=== PATIENT | male | born 1965 | race African-American/Black ===

== ENCOUNTER 2018-11-10 10:49 | Inpatient (IN) | payer OTHER ==
[2018-11-10 10:51] VITALS: BMI 27.8
--- NOTE | 2018-11-10 12:00 | HP ---
CIWA Score Nausea/Vomitin Muscle Tremors: 2 Anxiety: 2 Agitation: 2 Paroxysmal Sweats: 1-Minimal Palms Moist Orientation: 0-Oriented Tacttile Disturbances: 1-Very Mild Itch/Numbness Auditory Disturbances: 1-Very Mild Visual Disturbances: 0-None Headache: 2-Mild CIWA-Ar Total Score: 13 - Admission Criteria OASAS Guidelines: Admission for Medically Managed Detox: Requires at least one of the followin. CIWA greater than 12 2. Seizures within the past 24 hours 3. Delirium tremens within the past 24 hours 4. Hallucinations within the past 24 hours 5. Acute intervention needed for co occurring medical disorder 6. Acute intervention needed for co occurring psychiatric disorder 7. Severe withdrawal that cannot be handled at a lower level of care (continued vomiting, continued diarrhea, abnormal vital signs) requiring intravenous medication and/or fluids 8. Patient presents the following: CIWA greater than 12 Admission Criteria Met: Admission criteria met Admission ROS S - [facility] Chief Complaint: i Allergies/Adverse Reactions: Allergies Allergy/AdvReac Type Severity Reaction Status Date / Time No Known Allergies Allergy Verified 11/10/18 10:59 History of Present Illness: this 53 years old male with alcohol and cocaine dependence,seeking detox, withdrawal symptom,last treatment rehab [facility] 03/10/13 to 04/07/13 fx of left foot in 2014 wearing support,ambulate with cane nicotine dependence depression longest period of sobriety 4 years Exam Limitations: No Limitations - Ebola screening Have you traveled outside of the country in the last 21 days: No Have you had contact with anyone from an Ebola affected area: No Have you been sick,other than usual withdrawal symptoms: No Do you have a fever: No - Review of Systems Constitutional: Loss of Appetite, Malaise, Night Sweats, Changes in sleep, Weakness EENT: reports: Tearing, Nose Congestion Respiratory: reports: No Symptoms reported Cardiac: reports: No Symptoms Reported GI: reports: Nausea, Poor Appetite, Abdominal cramping : reports: No Symptoms Reported Musculoskeletal: reports: Back Pain, Muscle Pain, Other (pain in left foot previous fx) Integumentary: reports: Dryness Endocrine: reports: No Symptoms Reported, Unexplained Weight Loss Psychiatric: reports: No Sypmtoms Reported, Judgement Intact, Mood/Affect Appropiate, Orientated x3, Depressed Other Systems: Reviewed and Negative Patient History - Patient Medical History Hx Anemia: No Hx Asthma: Yes (on albuterol inhaler) Hx Chronic Obstructive Pulmonary Disease (COPD): No Hx Cancer: No Hx Cardiac Disorders: No Hx Congestive Heart Failure: No Hx Hypertension: No Hx Hypercholesterolemia: No Hx Pacemaker: No HX Cerebrovascular Accident: No Hx Seizures: No Hx Dementia: No Hx Diabetes: No Hx Gastrointestinal Disorders: No Hx Liver Disease: No Hx Genitourinary Disorders: No Hx Sexually Transmitted Disorders: No Hx Renal Disease (ESRD): No Hx Thyroid Disease: No Hx Human Immunodeficiency Virus (HIV): No (last 2016 negative) Hx Hepatitis C: No Hx Depression: Yes (no med) Hx Suicide Attempt: No Hx Bipolar Disorder: No Hx Schizophrenia: No Other Medical History: no suicial,no homicidal - Patient Surgical History Past Surgical History: No Hx Neurologic Surgery: No Hx Cataract Extraction: No Hx Cardiac Surgery: No Hx Lung Surgery: No Hx Breast Surgery: No Hx Breast Biopsy: No Hx Abdominal Surgery: No Hx Appendectomy: No Hx Cholecystectomy: No Hx Genitourinary Surgery: No Hx Section: No Hx Orthopedic Surgery: No Anesthesia Reaction: No - PPD History Previous Implant?: Yes Documented Results: Negative w/o proof Implanted On Prior [facility] Admission?: Yes Date: 03/25/13 PPD to be Administered?: Yes - Smoking Cessation Smoking history: Current every day smoker Have you smoked in the past 12 months: No Aproximately how many cigarettes per day: 30 Cigars Per Day: 0 Hx Chewing Tobacco Use: No Initiated information on smoking cessation: Yes 'Breaking Loose' booklet given: 11/10/18 - Substance & Tx. History Hx Alcohol Use: Yes Hx Substance Use: Yes Substance Use Type: Alcohol, Cocaine Hx Substance Use Treatment: Yes ([facility] 05/10/13 to 04/07/13 rehab) - Substances Abused Alcohol Route: Oral Frequency: Daily Amount used: 1 GALLON OF VODKA Age of first use: 14 Date of Last Use: 11/09/18 Crack Route: Smoking Frequency: 3-6 times per week Amount used: 2-3 GRAMS Age of first use: 27 Date of Last Use: 11/09/18 Heroin Route: Inhalation Frequency: 1-3 times last 30 days Amount used: 1 BAG Age of first use: 25 Date of Last Use: 11/09/18 Family Disease History - Family Disease History Family Disease History: Other: Father (alcohol,sober), Mother (alcohol,sober) Admission Physical Exam [facility] - Vital Signs Vital Signs: Vital Signs - 24 hr 11/10/18 10:50 Temperature 98.6 F Pulse Rate 70 Respiratory 20 Rate Blood Pressure 147/95 - Physical General Appearance: Yes: Moderate Distress, Tremorous, Irritable, Sweating, Anxious HEENTM: Yes: Normal ENT Inspection, KENZIE, Pharynx Normal Respiratory: Yes: Lungs Clear, Normal Breath Sounds, No Respiratory Distress Neck: Yes: Within Normal Limits, Supple, Trachea in good position Breast: Yes: Within Normal Limits Cardiology: Yes: Within Normal Limits, Regular Rhythm, Regular Rate, S1, S2 Abdominal: Yes: Within Normal Limits, Normal Bowel Sounds, Non Tender, Flat, Soft Genitourinary: Yes: Within Normal Limits Back: Yes: Muscle Spasm Musculoskeletal: Yes: Back pain, Muscle Pain Extremities: Yes: Tremors, Other (pain in left foot history of fx) Neurological: Yes: accounting file clerk II-XII NML intact, Fully Oriented, Alert, Motor Strength 5/5 Integumentary: Yes: Dry Lymphatic: Yes: Within Normal Limits - Diagnostic (1) Alcohol dependence with uncomplicated withdrawal Current Visit: Yes Status: Acute (2) Cocaine dependence Current Visit: No Status: Active (3) Methadone maintenance therapy patient Current Visit: Yes Status: Acute (4) History of fracture of foot Current Visit: Yes Status: Acute (5) Use of cane as ambulatory aid Current Visit: Yes Status: Acute (6) Depression Current Visit: Yes Status: Acute (7) Asthma Current Visit: Yes Status: Acute Cleared for Admission [facility] - Detox or Rehab [facility] Level of Care: Medically Managed Detox Regimen/Protocol: Librium [facility] Breath Alcohol Content Breath Alcohol Content: 0 Urine Drug Screen - Results Drug Screen Negative: No Urine Drug Screen Results: THC-Marijuana, MANFRED-Cocaine, OPI-Opiates, MTD- Methadone
[2018-11-10] MEDS ORDERED: MAG HYDROX/AL HYDROX/SIMETH 30 ML UNIT-DOSE CUP PO PRN (12:23)
[2018-11-10] MEDS ORDERED: MENTHOL/PHENOL 1 EACH UD MM PRN (12:23)
[2018-11-10] MEDS ORDERED: IBUPROFEN 400 MG TABLET (FP) PO PRN (12:23)
[2018-11-10] MEDS ORDERED: hydrOXYzine PAMOATE 50 MG CAPSULE (FP) PO PRN (12:23)
[2018-11-10] MEDS ORDERED: ACETAMINOPHEN 325 MG TABLET (FP) PO PRN (12:23)
[2018-11-10] MEDS ORDERED: MAGNESIUM CITRATE 300 ML BOTTLE PO PRN (12:23)
[2018-11-10] MEDS ORDERED: NICOTINE POLACRILEX 2 MG GUM BUC PRN (12:23)
[2018-11-10] MEDS ORDERED: LOPERAMIDE HCL 2 MG CAPSULE PO PRN (12:23)
[2018-11-10] MEDS ORDERED: chlordiazePOXIDE HCL 25 MG CAPSULE PO PRN (12:23)
[2018-11-10] MEDS ORDERED: MAGNESIUM HYDROX 2400MG/30ML ORAL SUSPENSION 30 ML CUP PO PRN (12:23)
[2018-11-10] MEDS ORDERED: P-EPHED 60MG/TRIPROLIDI 2.5MG TABLET PO PRN (12:23)
[2018-11-10] MEDS ORDERED: guaiFENesin/D-METHORPHAN HB 10 ML UNIT-DOSE CUPS PO PRN (12:23)
[2018-11-10] MEDS ORDERED: ALBUTEROL SO4 8 GM HFA INHALER IH PRN (12:26)
[2018-11-10] MEDS: NICOTINE 21 MG/24 HOURS TOPICAL PATCH TD SCH (14:13)
[2018-11-10] MEDS: chlordiazePOXIDE HCL 25 MG CAPSULE PO SCH ×2 (17:43→22:16)
[2018-11-10] MEDS: MELATONIN 5 MG TABLETS PO PRN (22:16)
[2018-11-10] MEDS: THIAMINE HCL 100 MG TABLET (FP) PO SCH (22:16)
[2018-11-11] MEDS: chlordiazePOXIDE HCL 25 MG CAPSULE PO SCH ×4 (05:41→22:05)
[2018-11-11] MEDS ORDERED: METHADONE HCL 40 MG DISPERSABLE TABLET ONE (05:41)
[2018-11-11] MEDS: METHADONE 120 MG, METHADONE 10 MG PO SCH (05:42)
[2018-11-11] MEDS ORDERED: METHADONE HCL 10 MG TABLET ONE (05:42)
[2018-11-11] MEDS ORDERED: METHADONE HCL 10 MG TABLET PO SCH (06:00)
--- NOTE | 2018-11-11 10:07 | EKG ---
Test Reason : Blood Pressure : / mmHG Vent. Rate : 063 BPM Atrial Rate : 063 BPM P-R Int : 134 ms QRS Dur : 092 ms QT Int : 410 ms P-R-T Axes : 033 010 024 degrees QTc Int : 419 ms NORMAL SINUS RHYTHM MINIMAL VOLTAGE CRITERIA FOR LVH, MAY BE NORMAL VARIANT NONSPECIFIC T WAVE ABNORMALITY ABNORMAL ECG NO PREVIOUS ECGS AVAILABLE Confirmed by Nnamdi Camarillo MD ([id number]) on 11/11/2018 10:06:26 AM Referred By: Confirmed By:Nnamdi Camarillo MD
[2018-11-11 10:32] LABS: HEMATOCRIT 38.6 % (35.4-49); HEMOGLOBIN 12.3 GM/dL (11.7-16.9); MCH 34.6 pg (25.7-33.7); MCHC 31.9 g/dl (32.0-35.9); MEAN CELL VOLUME 108.6 fl (80-96); MEAN PLT VOLUME 8.7 fl (7.5-11.1); PLATELET COUNT 193 K/MM3 (134-434); RBC 3.55 M/mm3 (4.00-5.60); RDW 15.5 % (11.9-15.9); WHITE BLOOD COUNT 5.7 K/mm3 (4.0-10.0)
[2018-11-11] MEDS: NICOTINE 21 MG/24 HOURS TOPICAL PATCH TD SCH (10:32)
[2018-11-11] MEDS: PRENATAL VITAMINS W/ FOLIC ACID TABLET (FP) PO SCH (10:32)
[2018-11-11 10:51] LABS: ALBUMIN 3.5 g/dl (3.4-5.0); ALK PHOS 53 U/L (45-117); ANION GAP 8 MMOL/L (8-16); BILIRUBIN,TOTAL 0.4 mg/dL (0.2-1); BLOOD UREA NITROGEN 9 mg/dL (7-18); CALCIUM 8.6 mg/dL (8.5-10.1); CHLORIDE 103 mmol/L (98-107); CO2 29 mmol/L (21-32); CREATININE 0.9 mg/dL (0.55-1.3); GLUCOSE,RANDOM 93 mg/dL (74-106); POTASSIUM 4.3 mmol/L (3.5-5.1); SGOT/AST 26 U/L (15-37); SGPT/ALT 25 U/L (13-61); SODIUM 140 mmol/L (136-145); TOT PROT 7.1 g/dl (6.4-8.2)
--- NOTE | 2018-11-11 13:53 | PN ---
S CIWA - CIWA Score Nausea/Vomitin Muscle Tremors: 3 Anxiety: 1-Mildly Anxious Agitation: 0-Normal Activity Paroxysmal Sweats: 3 Orientation: 0-Oriented Tacttile Disturbances: 2-Mild Itch/Numbness/Burn Auditory Disturbances: 0-None Visual Disturbances: 2-Mild Sensitivity Headache: 0-None Present CIWA-Ar Total Score: 14 BHS Progress Note (SOAP) Subjective: Interrupted Sleep, Sweating, Tremors, Diarrhea. Objective: PATIENT A & O X 3, OBSERVED AMBULATING ON UNIT WITH ASSISTANCE OF A CANE. IN NO ACUTE DISTRESS. 11/11/18 13:54 Vital Signs Temperature 97.5 F L 11/11/18 09:06 Pulse Rate 71 11/11/18 09:06 Respiratory Rate 18 11/11/18 09:06 Blood Pressure 131/88 11/11/18 09:06 O2 Sat by Pulse Oximetry (%) Laboratory Tests 11/11/18 11/11/18 11/11/18 07:00 07:00 07:00 WBC 5.7 RBC 3.55 L Hgb 12.3 Hct 38.6 MCV 108.6 H MCH 34.6 H MCHC 31.9 L RDW 15.5 Plt Count 193 MPV 8.7 Sodium 140 Potassium 4.3 Chloride 103 Carbon Dioxide 29 Anion Gap 8 BUN 9 Creatinine 0.9 Creat Clearance w eGFR > 60 Random Glucose 93 Calcium 8.6 Total Bilirubin 0.4 AST 26 ALT 25 Alkaline Phosphatase 53 Total Protein 7.1 Albumin 3.5 RPR Titer HIV 1&2 Antibody Screen Negative HIV P24 Antigen Negative 11/11/18 07:00 WBC RBC Hgb Hct MCV MCH MCHC RDW Plt Count MPV Sodium Potassium Chloride Carbon Dioxide Anion Gap BUN Creatinine Creat Clearance w eGFR Random Glucose Calcium Total Bilirubin AST ALT Alkaline Phosphatase Total Protein Albumin RPR Titer Nonreactive HIV 1&2 Antibody Screen HIV P24 Antigen LABS NOTED. Assessment: 11/11/18 13:55 WITHDRAWAL SYMPTOMS. Plan: CONTINUE DETOX. INCREASE DAILY PO FLUID INTAKE. PRN IMMODIUM FOR DIARRHEA.
[2018-11-11] MEDS: THIAMINE HCL 100 MG TABLET (FP) PO SCH (22:04)
[2018-11-11] MEDS: MELATONIN 5 MG TABLETS PO PRN (22:05)
[2018-11-12] MEDS ORDERED: METHADONE HCL 40 MG DISPERSABLE TABLET ONE (05:13)
[2018-11-12] MEDS ORDERED: METHADONE HCL 10 MG TABLET ONE (05:14)
[2018-11-12] MEDS: chlordiazePOXIDE HCL 25 MG CAPSULE PO SCH ×2 (05:21→10:10)
[2018-11-12] MEDS: METHADONE 120 MG, METHADONE 10 MG PO SCH (05:22)
[2018-11-12] MEDS: PRENATAL VITAMINS W/ FOLIC ACID TABLET (FP) PO SCH (10:10)
[2018-11-12] MEDS: NICOTINE 21 MG/24 HOURS TOPICAL PATCH TD SCH (10:10)
--- NOTE | 2018-11-12 15:40 | PN ---
S CIWA - CIWA Score Nausea/Vomitin-No Nausea/No Vomiting Muscle Tremors: 3 Anxiety: 3 Agitation: 3 Paroxysmal Sweats: 3 Orientation: 0-Oriented Tacttile Disturbances: 0-None Auditory Disturbances: 0-None Visual Disturbances: 0-None Headache: 0-None Present CIWA-Ar Total Score: 12 BHS Progress Note (SOAP) Subjective: sweats shakes interrupted sleep body aches Objective: 11/12/18 15:39 Vital Signs Temperature 97.2 F L 11/12/18 14:15 Pulse Rate 69 11/12/18 14:15 Respiratory Rate 18 11/12/18 14:15 Blood Pressure 152/84 11/12/18 14:15 O2 Sat by Pulse Oximetry (%) Laboratory Tests 11/11/18 11/11/18 11/11/18 07:00 07:00 07:00 WBC 5.7 RBC 3.55 L Hgb 12.3 Hct 38.6 MCV 108.6 H MCH 34.6 H MCHC 31.9 L RDW 15.5 Plt Count 193 MPV 8.7 Sodium 140 Potassium 4.3 Chloride 103 Carbon Dioxide 29 Anion Gap 8 BUN 9 Creatinine 0.9 Creat Clearance w eGFR > 60 Random Glucose 93 Calcium 8.6 Total Bilirubin 0.4 AST 26 ALT 25 Alkaline Phosphatase 53 Total Protein 7.1 Albumin 3.5 RPR Titer HIV 1&2 Antibody Screen Negative HIV P24 Antigen Negative 11/11/18 07:00 WBC RBC Hgb Hct MCV MCH MCHC RDW Plt Count MPV Sodium Potassium Chloride Carbon Dioxide Anion Gap BUN Creatinine Creat Clearance w eGFR Random Glucose Calcium Total Bilirubin AST ALT Alkaline Phosphatase Total Protein Albumin RPR Titer Nonreactive HIV 1&2 Antibody Screen HIV P24 Antigen aaox3 ambulating no acute distress Assessment: 11/12/18 15:39 withdrawal sx Plan: continue detox increase fluids
[2018-11-12] MEDS: chlordiazePOXIDE 5 MG CAPSULE PO SCH ×2 (17:29→22:16)
[2018-11-12] MEDS: THIAMINE HCL 100 MG TABLET (FP) PO SCH (22:15)
[2018-11-12] MEDS: MELATONIN 5 MG TABLETS PO PRN (22:17)
[2018-11-13] MEDS ORDERED: METHADONE HCL 40 MG DISPERSABLE TABLET ONE (05:43)
[2018-11-13] MEDS ORDERED: METHADONE HCL 10 MG TABLET ONE (05:43)
[2018-11-13] MEDS: METHADONE 120 MG, METHADONE 10 MG PO SCH (05:48)
[2018-11-13] MEDS: chlordiazePOXIDE 5 MG CAPSULE PO SCH ×2 (05:49→10:36)
[2018-11-13] MEDS: PRENATAL VITAMINS W/ FOLIC ACID TABLET (FP) PO SCH (10:35)
[2018-11-13] MEDS: NICOTINE 21 MG/24 HOURS TOPICAL PATCH TD SCH (10:36)
--- NOTE | 2018-11-13 14:09 | PN ---
BHS Progress Note (SOAP) Subjective: Tremors, Fatigue, Sweating, Constipation. Objective: PATIENT A & O X 3, OBSERVED AMBULATING ON UNIT. IN NO ACUTE DISTRESS. 11/13/18 14:05 Vital Signs Temperature 98.6 F 11/13/18 13:41 Pulse Rate 74 11/13/18 13:41 Respiratory Rate 18 11/13/18 13:41 Blood Pressure 130/77 11/13/18 13:41 O2 Sat by Pulse Oximetry (%) Laboratory Tests 11/11/18 11/11/18 11/11/18 07:00 07:00 07:00 WBC 5.7 RBC 3.55 L Hgb 12.3 Hct 38.6 MCV 108.6 H MCH 34.6 H MCHC 31.9 L RDW 15.5 Plt Count 193 MPV 8.7 Sodium 140 Potassium 4.3 Chloride 103 Carbon Dioxide 29 Anion Gap 8 BUN 9 Creatinine 0.9 Creat Clearance w eGFR > 60 Random Glucose 93 Calcium 8.6 Total Bilirubin 0.4 AST 26 ALT 25 Alkaline Phosphatase 53 Total Protein 7.1 Albumin 3.5 RPR Titer HIV 1&2 Antibody Screen Negative HIV P24 Antigen Negative 11/11/18 07:00 WBC RBC Hgb Hct MCV MCH MCHC RDW Plt Count MPV Sodium Potassium Chloride Carbon Dioxide Anion Gap BUN Creatinine Creat Clearance w eGFR Random Glucose Calcium Total Bilirubin AST ALT Alkaline Phosphatase Total Protein Albumin RPR Titer Nonreactive HIV 1&2 Antibody Screen HIV P24 Antigen LABS NOTED. Assessment: 11/13/18 14:07 WITHDRAWAL SYMPTOMS. Plan: CONTINUE DETOX. INCREASE DAILY PO FLUID INTAKE. PRN MOM FOR CONSTIPATION.
[2018-11-13] MEDS: chlordiazePOXIDE HCL 10 MG CAPSULE PO SCH ×2 (17:47→22:20)
[2018-11-13] MEDS: THIAMINE HCL 100 MG TABLET (FP) PO SCH (22:20)
[2018-11-13] MEDS: MELATONIN 5 MG TABLETS PO PRN (22:20)
[2018-11-14] MEDS ORDERED: METHADONE HCL 40 MG DISPERSABLE TABLET ONE (04:39)
[2018-11-14] MEDS ORDERED: METHADONE HCL 10 MG TABLET ONE (04:40)
[2018-11-14] MEDS: chlordiazePOXIDE HCL 10 MG CAPSULE PO SCH (05:18)
[2018-11-14] MEDS: METHADONE 120 MG, METHADONE 10 MG PO SCH (05:18)
--- NOTE | 2018-11-14 08:53 | DS ---
[facility] Detox Discharge Summary Admission Date: 11/10/18 Discharge Date: 11/14/18 - History Present History: Alcohol Dependence, Cocaine Dependence, MMTP - Physical Exam Results Vital Signs: Vital Signs Temperature 98.2 F 11/14/18 06:42 Pulse Rate 73 11/14/18 06:42 Respiratory Rate 18 11/14/18 06:42 Blood Pressure 118/58 L 11/14/18 06:42 O2 Sat by Pulse Oximetry (%) - Treatment Hospital Course: Detox Protocol Followed, Detoxed Safely, Responded well, Discharged Condition Good, Rehab Referral Accepted - Medication Discharge Medications: Ambulatory Orders Albuterol Sulfate Inhaler - [Ventolin HFA Inhaler -] 2 inh IH Q4H 03/10/13 - Diagnosis (1) Cocaine dependence Current Visit: Yes Status: Acute (2) Alcohol dependence with uncomplicated withdrawal Current Visit: Yes Status: Chronic (3) Asthma Current Visit: Yes Status: Chronic Qualifiers: Asthma severity: mild Asthma persistence: unspecified Asthma complication type: unspecified Qualified Code(s): J45.909 - Unspecified asthma , uncomplicated (4) Depression Current Visit: Yes Status: Chronic Qualifiers: Depression Type: unspecified Qualified Code(s): F32.9 - Major depressive disorder, single episode, unspecified (5) History of fracture of foot Current Visit: Yes Status: Acute (6) Methadone maintenance therapy patient Current Visit: Yes Status: Chronic (7) Nicotine dependence Current Visit: Yes Status: Chronic Qualifiers: Nicotine product type: cigarettes Substance use status: uncomplicated Qualified Code(s): F17.210 - Nicotine dependence, cigarettes, uncomplicated (8) Use of cane as ambulatory aid Current Visit: Yes Status: Acute - AMA Did Patient Leave Against Medical Advice: No (outpatient rehab)
[2018-11-14 09:26] VITALS: BP 130/71; PULSE 83; TEMP 98.1
== END 2018-11-14 09:41 | disposition home or self-care (01) | DRG 773 ==
LOC: YASAS 10:49 → Y6N 12:31
PROC: HZ2ZZZZ Detoxification Services for Substance Abuse Treatment (ICD-10-PCS; principal; 2018-11-10)
DX: F10.230 Alcohol dependence with withdrawal, uncomplicated (principal); F11.20 Opioid dependence, uncomplicated; F14.20 Cocaine dependence, uncomplicated; F17.210 Nicotine dependence, cigarettes, uncomplicated; F32.9 Major depressive disorder, single episode, unspecified; J45.909 Unspecified asthma, uncomplicated; R26.2 Difficulty in walking, not elsewhere classified; Z99.89 Dependence on other enabling machines and devices
CPT/HCPCS: 36415; 80053; 85027; 86593; 87389; 93005; 93010

== ENCOUNTER 2024-05-22 16:52 | Inpatient (IN) | payer OTHER ==
[2024-05-22 17:30] VITALS: BMI 22.7
[2024-05-22] MEDS ORDERED: ALBUTEROL SO4 HFA INHALER IH PRN (17:45)
[2024-05-22] MEDS ORDERED: BISMUTH SUBSALICYLATE 524 MG/30 ML PO PRN (17:52)
[2024-05-22] MEDS ORDERED: NICOTINE POLACRILEX 2 MG LOZENGE BC PRN (17:52)
[2024-05-22] MEDS ORDERED: NICOTINE POLACRILEX 2 MG GUM BUC PRN (17:52)
[2024-05-22] MEDS ORDERED: BENZONATATE 200 MG CAPSULE PO PRN (17:52)
[2024-05-22] MEDS ORDERED: POLYETHYLENE GLYCOL (HEALTHYLAX) 3350 17 GM PACKET PO PRN (17:52)
[2024-05-22] MEDS ORDERED: P-EPHED 60MG/TRIPROLIDI 2.5MG TABLET PO PRN (17:52)
[2024-05-22] MEDS ORDERED: IBUPROFEN 600 MG TABLET (FP) PO PRN (17:52)
[2024-05-22] MEDS ORDERED: NALOXONE HCL 0.4 MG/ML VIAL IM PRN (17:52)
[2024-05-22] MEDS ORDERED: NALOXONE (NARCAN) HCL 4 MG/0.1 ML SPRAY NS PRN (17:52)
[2024-05-22] MEDS ORDERED: IBUPROFEN 400 MG TABLET (FP) PO PRN (17:52)
[2024-05-22] MEDS ORDERED: MAGNESIUM HYDROX 2400MG/30ML ORAL SUSPENSION 30 ML CUP PO PRN (17:52)
[2024-05-22] MEDS ORDERED: LOPERAMIDE HCL 2 MG CAPSULE PO PRN (17:52)
[2024-05-22] MEDS ORDERED: ACETAMINOPHEN 325 MG TABLET (FP) PO PRN (17:52)
[2024-05-22] MEDS ORDERED: BENZOCAINE/MENTHOL (CHLORASEPTIC ) LOZENGE MM PRN (17:52)
[2024-05-22] MEDS ORDERED: DICYCLOMINE HCL 10 MG CAPSULE PO PRN (17:52)
[2024-05-22] MEDS ORDERED: guaiFENesin 600 MG TABLET.ER (FP) PO PRN (17:52)
[2024-05-22] MEDS: THIAMINE 100 MG TABLET PO SCH (21:54)
[2024-05-22] MEDS: MELATONIN 5 MG TABLETS PO SCH (21:54)
[2024-05-23] MEDS: PRENATAL VITAMINS W/ FOLIC ACID TABLET (FP) PO SCH (09:43)
[2024-05-23 11:50] LABS: HEMATOCRIT 32.5 % (35.4-49); HEMOGLOBIN 10.9 GM/dL (11.7-16.9); MCH 35.7 pg (25.7-33.7); MCHC 33.6 g/dl (32.0-35.9); MEAN CELL VOLUME 106.3 fl (80-96); MEAN PLT VOLUME 8.2 fl (7.5-11.1); PLATELET COUNT 207 10^3/uL (134-434); POTASSIUM 3.7 mmol/L (3.5-5.1); RBC 3.06 M/mm3 (4.00-5.60); RDW 13.7 % (11.9-15.9)
[2024-05-23 11:52] LABS: ALBUMIN 2.8 g/dl (3.4-5.0); BLOOD UREA NITROGEN 7.4 mg/dL (7-18); CALCIUM 8.1 mg/dL (8.5-10.1)
[2024-05-23 11:55] LABS: CREATININE 0.6 mg/dL (0.55-1.3)
[2024-05-23 11:57] LABS: BILIRUBIN,TOTAL 0.6 mg/dL (0.2-1); TOT PROT 5.8 g/dl (6.4-8.2)
[2024-05-23] MEDS ORDERED: cloNIDine HCL 0.1 MG TABLET PO PRN (13:22)
[2024-05-23] MEDS: methaDONE HCL 10 MG TABLET (FOR DETOX USE ONLY) PO ONE (13:41)
[2024-05-23] MEDS: hydrOXYzine PAMOATE 25 MG CAPSULE (FP) PO PRN (21:31)
[2024-05-24] MEDS: MAG HYDROX/AL HYDROX/SIMETH 30 ML UNIT-DOSE CUP PO PRN (12:18)
[2024-05-24] MEDS: METHOCARBAMOL 500 MG TABLET PO PRN (16:07)
[2024-05-24] MEDS: BUPRENORPHINE/NALOXONE 0.5 MG/0.125 MG FILM SL ONE (22:12)
[2024-05-25] MEDS: methaDONE HCL 10 MG TABLET (FOR DETOX USE ONLY) PO ONE (09:54)
[2024-05-25] MEDS: BUPRENORPHINE/NALOXONE 0.5 MG/0.125 MG FILM SL SCH (09:55)
[2024-05-26] MEDS: ONDANSETRON *ODT* 4 MG TABLET SL PRN (09:56)
[2024-05-26] MEDS: BUPRENORPHINE/NALOXONE 2 MG/0.5 MG FILM PACKET SL SCH (09:57)
[2024-05-26] MEDS: SUVOREXANT 10 MG TABLET PO PRN (22:31)
[2024-05-27] MEDS: methaDONE HCL 10 MG TABLET (FOR DETOX USE ONLY) PO ONE (09:17)
[2024-05-27] MEDS: BUPRENORPHINE/NALOXONE 4 MG/1 MG FILM PACKET SL SCH (09:17)
[2024-05-28] MEDS: BUPRENORPHINE/NALOXONE 8 MG/2 MG FILM PACKET SL SCH (09:27)
[2024-05-29 06:25] VITALS: PULSE 60; RESP 16
[2024-05-29] MEDS: BUPRENORPHINE/NALOXONE 8 MG/2 MG FILM PACKET SL SCH (09:37)
[2024-05-29 09:41] VITALS: BP 116/44; TEMP 96.8
== END 2024-05-29 09:40 | disposition home or self-care (01) | DRG 773 ==
LOC: YASAS 16:52 → Y6N 18:39
PROVIDERS: ADMIT Allergy & Immunology; ATTEND Surgery
PROC: HZ2ZZZZ Detoxification Services for Substance Abuse Treatment (ICD-10-PCS; principal; 2024-05-22)
DX: F11.23 Opioid dependence with withdrawal (principal); F10.230 Alcohol dependence with withdrawal, uncomplicated; F14.20 Cocaine dependence, uncomplicated; F17.210 Nicotine dependence, cigarettes, uncomplicated; F19.282 Other psychoactive substance dependence with psychoactive substance-induced sleep disorder; F19.24 Other psychoactive substance dependence with psychoactive substance-induced mood disorder; F41.9 Anxiety disorder, unspecified; J45.909 Unspecified asthma, uncomplicated; Z87.81 Personal history of (healed) traumatic fracture; Z99.89 Dependence on other enabling machines and devices
CPT/HCPCS: 36415; 80053; 80305; 80307; 85027; 86780; 93005; 93010; Q0162